=== PATIENT | female | born 1990 | race American Indian/Alaskan Native ===

== ENCOUNTER 2018-01-13 14:46 | Observation (INO) | payer MEDICAID, OTHER ==
[2018-01-13] MEDS: Lactated Ringer's 1,000 ML IV SCH ×3 (16:05→20:00)
[2018-01-13 16:13] VITALS: BMI 25.6
[2018-01-13 17:02] LABS: BASO % 0.2 % (0.0-2.0); EOS # 0.1 K/uL (0.0-0.7); EOS % 0.7 % (0.0-4.0); HEMOGLOBIN 10.4 g/dL (12.0-16.0); LYMPH # 1.5 K/uL (1.0-4.3); LYMPH % 17.8 % (20.0-40.0); MEAN CELL VOLUME 91.9 fl (81.0-99.0); MEAN CORPUSCULAR HEMOGLOBIN 30.9 pg (27.0-31.0); MEAN CORPUSCULAR HGB CONC 33.7 g/dL (33.0-37.0); MONO # 0.7 K/uL (0.0-0.8); MONO % 8.7 % (0.0-10.0); NEUT # 6.1 K/uL (1.8-7.0); NEUT % 72.6 % (50.0-75.0); NRBC % 0.1 % (0.0-0.0); RBC 3.37 Mil/uL (3.80-5.20); RED CELL DISTRIBUTION WIDTH 12.6 % (11.5-14.5); WHITE BLOOD COUNT 8.4 K/uL (4.8-10.8)
[2018-01-13 17:08] LABS: SQUAMOUS EPITHIAL 9 /hpf (0-5); URINE BILIRUBIN NEGATIVE (NEGATIVE); URINE BLOOD NEGATIVE (NEGATIVE); URINE CLARITY CLOUDY (Clear); URINE COLOR YELLOW (YELLOW); URINE GLUCOSE (UA) NEG (Normal); URINE LEUKOCYTE ESTERASE NEG Leu/uL (Negative); URINE PROTEIN 30 mg/dL (NEGATIVE)
[2018-01-13 17:13] LABS: ALB/GLOB RATIO 0.9 (1.0-2.1); ALBUMIN 3.3 g/dL (3.5-5.0); ALT/SGPT 30 U/L (9-52); AST/SGOT 26 U/L (14-36); BLOOD UREA NITROGEN 6 mg/dl (7-17); CALCIUM 8.6 mg/dL (8.4-10.2); GFR AFRICAN-AMERICAN > 60; GFR NON-AFRICAN AMERICAN > 60
[2018-01-13 17:29] LABS: SPECIMEN COMMENT SL. CLOUDY
--- NOTE | 2018-01-13 18:42 | US ---
PROCEDURE: OB Pelvic Ultrasound HISTORY: patient discomfort LMP: 05/24/2018 suggesting gestational age of 33 weeks 3 days. COMPARISON: None available. FINDINGS: UTERUS: A single viable intrauterine gestation is identified in cephalic lie with a posterior fundal placenta identified and an average ultrasonic age of 33 weeks 6 days which agrees with LMP derived dates. No placental abruption or previa. viability is confirmed with a heart rate of 145 beats per minute. The following biometry was obtained: Biparietal diameter 8.8 cm corresponds to 35 weeks 4 days. Head circumference 29.8 cm corresponds to 33 weeks 5 days. Abdominal circumference 29.6 cm corresponds to 33 weeks 4 days. Femur length 6.5 cm corresponds to 33 weeks 3 days. An and fluid index measures 19.1 cm which is within the normal range as well as the AC/AC ratio of 1.01. Estimated weight 5 lb 12 oz or 2254 g. Date of delivery (Ultrasound estimated) : 02/25/2018. Uterine myometrium is incompletely captured in this exam but the anterior fundus appears grossly nonfocal as imaged. anatomical survey is quite compromised at this late stage of gestation or chamber heart view identified. Normal abdominal umbilical cord insertion is evident and non hydronephrotic kidneys are identified. The stomach and urinary bladder are not clearly identified as well as a three-vessel umbilical cord. The spine is poorly evaluated due to lie. CERVIX: Measures 4.1 cm. Long with closed internal os. Fluid is identified within the endocervical canal however. RIGHT OVARY: Not identified. LEFT OVARY: Not identified. FREE FLUID: None seen. OTHER FINDINGS: None. IMPRESSION: A single viable intrauterine gestation identified in cephalic lie within average ultrasonic age of 33 weeks 4 days concordant with LMP derived dates. No placental abruption or previa. cardiac activity 145 beats per minute. Limited anatomical survey. Cervical length normal however trace fluid is seen within the endocervical canal without obvious funneling from the internal os. Clinically correlate.
[2018-01-14] MEDS: Lactated Ringer's 1,000 ML IV SCH (04:00)
--- NOTE | 2018-01-14 09:49 | OBDCSUM ---
Datetime: 01/14/2018 09:06 Discharged to, Provider: Home Follow up at, Provider: [facility] Disch Instr Activity: Normal activity Disch Instr Diet: Regular Discharge Diagnosis, Provider: False Labor - Undelivered Discharge Time: 01/14/2018 09:06 Follow up in weeks, Provider: January 18, 2018 Disch Referrals: None Disch Activity Restrictions: No lifting; No sexual activity; Nothing in vagina - Morse, tampon s, douche Discharge Comment, Provider: Threatened PTL...SVE closed (Dr Amaro)...labor instructoins given
[2018-01-14 13:50] VITALS: BP 94/50; PULSE 95; TEMP 98.1
== END 2018-01-14 09:48 | disposition home or self-care (01) ==
LOC: H.EROB2 14:46 → H.L&D 19:31
PROVIDERS: ADMIT Obstetrics & Gynecology; ATTEND Obstetrics & Gynecology
DX: O47.03 False labor before 37 completed weeks of gestation, third trimester (principal); Z3A.33 33 weeks gestation of pregnancy
CPT/HCPCS: 76815; 80053; 81003; 82731; 85025; 86850; 86900; 96360; 96361; G0378; J7120